=== PATIENT | female | born 1985 | race Caucasian/White ===

== ENCOUNTER 2024-06-04 18:37 | Emergency (ER) | payer BC ==
[~2024-06-04 18:37] MED LIST: Iopamidol 300 61% 100 ML VIAL FS ONE
[2024-06-04 19:31] LABS: #Basophils 0.06 10x3/uL (0.0-0.2); #Eosinophils 0.27 10x3/uL (0.0-0.5); #Monocytes 0.52 10x3/uL (0.0-1.1); %Basophils 1.2 % (0.0-2.0); %Eosinophils 5.2 % (0.0-6.0); %Lymphocytes 29.2 % (18.0-47.0); Hematocrit 34.4 % (34.9-44.5); Hemoglobin 11.1 g/dL (12.0-15.5); Mean Corpuscular HGB CONC 32.3 g/dL (32.0-36.0); Mean Corpuscular Hemoglobin 27.9 pg (27.0-33.0); Mean Corpuscular Volume 86.4 fL (81.6-98.3); Mean Platelet Volume 9.2 fL (7.4-10.4); Platelet Count 344 10x3/uL (150-450); RBC Distribution Width 12.6 % (11.5-14.5); Red Blood Cell (RBC) Count 3.98 10x6/uL (3.90-5.03); White Blood Cell (WBC) Count 5.18 10x3/uL (3.5-10.5)
[2024-06-04 19:44] LABS: BHCG - Serum Negative (NEGATIVE); Pregs Control Background? CLEAR/WHITE (CLR/WHITE); Pregs Control Bar Appear? YES (CONTROL BAR)
[2024-06-04 19:48] LABS: Anion Gap 13 mmol/L (10-20); BUN (Urea Nitrogen) 11 mg/dL (7.0-18.7); Calc. Creatinine Clearance 0 mL/min (70-130); Calcium 8.9 mg/dL (7.8-10.44); Carbon Dioxide 25 mmol/L (22-29); Chloride 107 mmol/L (98-107); Estimated GFR 108; Glucose 87 mg/dL (70-105); Sodium 141 mmol/L (136-145)
== END 2024-06-04 21:00 | disposition home or self-care (01) ==
LOC: CSHERS 18:37
DX: R07.81 Pleurodynia (principal); R07.89 Other chest pain; Z87.891 Personal history of nicotine dependence
CPT/HCPCS: 71275; 80048; 84703; 85025; Q9967

== ENCOUNTER 2024-12-29 08:04 | Outpatient (CLI) | payer BC | END 2024-12-29 08:05 | disposition home or self-care (01) | LOC: CSHULT 08:04 | PROVIDERS: ATTEND Internal Medicine Hematology & Oncology | DX: C50.811 Malignant neoplasm of overlapping sites of right female breast (principal); T38.6X5A Adverse effect of antigonadotrophins, antiestrogens, antiandrogens, not elsewhere classified, initial encounter ==